=== PATIENT | female | born 1990 | race Caucasian/White ===

== ENCOUNTER 2019-09-08 21:07 | Emergency (ER) | payer OTHER ==
[~2019-09-08] VITALS: Ht 165 cm; Wt 105.0 kg
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
[2019-09-08 21:19] LABS: BASOPHILS % (AUTO) 0 % (0-10); EOSINOPHILS # (AUTO) 0.1 10^3/uL (0.0-0.3); EOSINOPHILS % (AUTO) 1 % (0-10); HEMATOCRIT 38 % (35-52); HEMOGLOBIN 13.1 G/DL (11.5-16.0); LYMPHOCYTES # (AUTO) 3.2 X 10^3 (1.0-4.0); LYMPHOCYTES % (AUTO) 30 % (12-44); MEAN CORPUSCULAR HEMOGLOBIN 27 PG (25-34); MEAN CORPUSCULAR HGB CONC 34 G/DL (32-36); MEAN CORPUSCULAR VOLUME 80 FL (80-99); MEAN PLATELET VOLUME 9.1 FL (7.4-10.4); MONOCYTES # (AUTO) 0.7 X 10^3 (0.0-1.0); MONOCYTES % (AUTO) 6 % (0-12); NEUTROPHILS # (AUTO) 6.8 X 10^3 (1.8-7.8); NEUTROPHILS % (AUTO) 63 % (42-75); PLATELET COUNT 353 10^3/uL (130-400); RED CELL DISTRIBUTION WIDTH 13.7 % (10.0-14.5); WHITE BLOOD COUNT 10.7 10^3/uL (4.3-11.0)
[2019-09-08 21:41] LABS: ALANINE AMINOTRANSFERASE 28 U/L (0-55); ALBUMIN 4.3 GM/DL (3.2-4.5); ALKALINE PHOSPHATASE 61 U/L (40-136); BILIRUBIN,TOTAL 0.8 MG/DL (0.1-1.0); BUN/CREATININE RATIO 14; CALCIUM 9.1 MG/DL (8.5-10.1); CARBON DIOXIDE 23 MMOL/L (21-32); CHLORIDE 104 MMOL/L (98-107); CREATININE SERUM 0.85 MG/DL (0.60-1.30); GFR ESTIMATED > 60; GLUCOSE 95 MG/DL (70-105); POTASSIUM 3.5 MMOL/L (3.6-5.0); SODIUM 139 MMOL/L (135-145); TOTAL PROTEIN 7.2 GM/DL (6.4-8.2)
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
[2019-09-08] MEDS ORDERED: LORazepam INJ 2 MG/ML (ATIVAN) VIAL ONE (21:53)
[2019-09-08] MEDS ORDERED: NS 100 ML (IVPB) BAG IV ONE (22:00)
[2019-09-08] MEDS ORDERED: HOLD METFORMIN - RECEIVED CONTRAST 20 ML VIAL IV SCH (22:00)
[2019-09-08] MEDS ORDERED: LORazepam INJ 2 MG/ML (ATIVAN) VIAL IVP PRN (22:00)
[2019-09-08] MEDS ORDERED: IOHEXOL 350 MG/ML 100 ML (OMNIPAQUE 350) VIAL IV ONE (22:00)
--- NOTE | 2019-09-08 22:01 | NUR ---
AMRITA CORDON PATROL AT BEDSIDE W/ PT
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
[2019-09-08] MEDS ORDERED: RX-HYDROCODONE/APAP 5/325 MG #4 TAB PK PO PRN (22:15)
[2019-09-08 22:58] VITALS: BP 120/78
--- NOTE | 2019-09-08 22:58 | NUR ---
PT DISCHARGED TO HOME W/ MEDS ET INSTR. PT TO F/U W/ PCP ET RETURN IF SYMPTOMS CHANGE OR GET WORSE. UNDERSTANDING VOICED, NO QUESTIONS.
== END 2019-09-08 22:58 | disposition home or self-care (01) ==
LOC: ER 21:10
DX: S20.01XA Contusion of right breast, initial encounter (principal); R40.2142 Coma scale, eyes open, spontaneous, at arrival to emergency department; R40.2252 Coma scale, best verbal response, oriented, at arrival to emergency department; R40.2362 Coma scale, best motor response, obeys commands, at arrival to emergency department; Z91.040 Latex allergy status; Z88.0 Allergy status to penicillin; V43.53XA Car driver injured in collision with pick-up truck in traffic accident, initial encounter
CPT/HCPCS: 36415; 70450; 71260; 72125; 74177; 80053; 84703; 85025; 96374

== ENCOUNTER 2021-03-10 21:06 | Emergency (ER) | payer OTHER ==
[~2021-03-10] VITALS: Ht 172.7 cm; Wt 75.0 kg
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
[2021-03-10] MEDS ORDERED: RX-CYCLOBENZAPRINE 10 MG (FLEXERIL) TAB PPK#3 PO STA (23:18)
[2021-03-10] MEDS ORDERED: CYCL10TA9 PO (23:22)
[2021-03-10 23:33] VITALS: BP 118/71
== END 2021-03-10 23:31 | disposition home or self-care (01) ==
LOC: EDUNIT# 21:06 → ER 21:08
DX: R07.89 Other chest pain (principal); M79.644 Pain in right finger(s); M25.562 Pain in left knee; M25.532 Pain in left wrist; M54.2 Cervicalgia; V89.2XXA Person injured in unspecified motor-vehicle accident, traffic, initial encounter
CPT/HCPCS: 70450; 71045; 72125; 72170; 73110; 73140; 73562

== ENCOUNTER 2022-05-08 09:11 | Emergency (ER) | payer MEDICAID ==
[~2022-05-08] VITALS: Ht 165.1 cm; Wt 95.9 kg
[~2022-05-08 09:11] MED LIST: CYCL10TA25 PO
[2022-05-08 11:26] LABS: BILIRUBIN,URINE NEGATIVE (NEGATIVE); CLARITY,URINE CLEAR; COLOR,URINE YELLOW; GLUCOSE, URINE (UA) NEGATIVE (NEGATIVE); KETONES,URINE TRACE (NEGATIVE); LEUKOCYTE ESTERASE ,URINE TRACE (NEGATIVE); NITRITE,URINE NEGATIVE (NEGATIVE); PROTEIN,URINE NEGATIVE (NEGATIVE)
[2022-05-08 11:32] LABS: BACTERIA,URINE FEW /HPF; RBC,URINE 0-2 /HPF
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
[2022-05-08 13:06] VITALS: BP 113/78
== END 2022-05-08 13:08 | disposition home or self-care (01) ==
LOC: EDUNIT# 09:11 → ER 09:16
DX: O9A.211 Injury, poisoning and certain other consequences of external causes complicating pregnancy, first trimester (principal); S30.0XXA Contusion of lower back and pelvis, initial encounter; S09.90XA Unspecified injury of head, initial encounter; M25.571 Pain in right ankle and joints of right foot; Z91.040 Latex allergy status; Z3A.10 10 weeks gestation of pregnancy; W10.9XXA Fall (on) (from) unspecified stairs and steps, initial encounter; W22.8XXA Striking against or struck by other objects, initial encounter; Y92.009 Unspecified place in unspecified non-institutional (private) residence as the place of occurrence of the external cause
CPT/HCPCS: 81000; 84703; 87077; 87088

== ENCOUNTER 2022-05-29 20:54 | Emergency (ER) | payer MEDICAID ==
[2022-05-29] MEDS ORDERED: diphenhydrAMINE 50 MG/ML INJ (BENADRYL) IM STA (21:10)
--- NOTE | 2022-05-29 21:14 | ED Headache ---
General Chief Complaint: Head/Cervical Problems Stated Complaint: MIGRAINE/FEVER 14 WKS PREG Source: patient Exam Limitations: no limitations History of Present Illness Date Seen by Provider: May 29, 2022 Time Seen by Provider: 21:04 Initial Comments 31-year-old female presents to the emergency department today for migraine headache. It is similar to her previous history of migraines. Its been present for 2 weeks. At about the 1 week farhana it started to get a little bit better and then 2 days later got worse again. She has seen her primary doctor and forensics team director as she is 14 weeks . They have offered her no further treatment recommendations. She has taken Tylenol and Benadryl, caffeine without any relief. Headache is described as sharp stabbing diffuse and associated with sensitivity to lights and sounds. No nausea or vomiting. It is exactly like her previous migraine headaches. Allergies and Home Medications Allergies Coded Allergies: Latex, Natural Rubber (Unverified Allergy, Unknown, 09/08/19) Penicillins (Unverified Allergy, Unknown, 09/08/19) Patient Home Medication List Home Medication List Reviewed: Yes Cyclobenzaprine HCl (Cyclobenzaprine HCl) 10 Mg Tablet, 10 MG PO Q8H PRN for SPASMS Prescribed by: ALEXANDER HASTINGS on 03/10/21 8919 Review of Systems Review of Systems Constitutional: no symptoms reported Eyes: No Symptoms Reported Ears, Nose, Mouth, Throat: no symptoms reported Respiratory: no symptoms reported Cardiovascular: no symptoms reported Gastrointestinal: no symptoms reported Genitourinary: no symptoms reported Musculoskeletal: no symptoms reported Skin: no symptoms reported Psychiatric/Neurological: Headache Past Ugpmpbw-Dyrstt-Hjpxzi Hx Patient Social History Tobacco Use?: No Use of E-Cig and/or Vaping dev: No Substance use?: No Alcohol Use?: No Pt feels they are or have been: No Immunizations Up To Date Influenza Vaccine Up-to-Date: No; Not Current First/Initial COVID19 Vaccinat: 03/04 Second COVID19 Vaccination Cm: 03/04 Third COVID19 Vaccination Date: 03/04 Past Medical History Surgeries: Yes (DENTAL) Respiratory: No Cardiac: No Neurological: No Reproductive Disorders: No Genitourinary: No Gastrointestinal: No Musculoskeletal: No Endocrine: No HEENT: No Cancer: No Psychosocial: Yes ADD/ADHD, Sleep Difficulties, Anxiety, ODD, Bipolar Integumentary: No Family Medical History Reviewed Nursing Family Hx Physical Exam Vital Signs Capillary Refill : Height, Weight, BMI Height: '" Weight: lbs. oz. kg; 35.00 BMI Method: General Appearance: WD/WN, no apparent distress HEENT: PERRL/EOMI, normal ENT inspection, TMs normal, pharynx normal Neck: non-tender, supple, normal inspection Cardiovascular: regular rate, rhythm, no murmur Respiratory: chest non-tender, lungs clear, normal breath sounds, no respiratory distress, no accessory muscle use Gastrointestinal: normal bowel sounds, non tender, soft, no organomegaly Psychiatric: alert, oriented x 3 Crainal Nerves: normal hearing, normal speech, PERRL Motor/Sensory: no motor deficit, no sensory deficit Skin: normal color, warm/dry Progress/Results/Core Measures Results/Orders My Orders Orders - SANDRA RUBIO DO Diphenhydramine Injection (Benadryl Inje (05/29/22 21:10) Departure Communication (Admissions) Patient is hemodynamically stable no focal neurologic deficits. She is afebrile without any evidence for infectious cause. No indication for imaging at this time. Unfortunately given her we are limited on what we can try for her headache. She is given IM Benadryl here and discharged home recommending alternating Tylenol and Benadryl. Impression Primary Impression: Migraine headache Qualified Codes: G43.909 - Migraine, unspecified, not intractable, without status migrainosus Disposition: 01 HOME, SELF-CARE Condition: Stable Departure-Patient Inst. Referrals: RISHI DOMINGO MD (PCP) Primary Care Physician [facility] (Family) Primary Care Physician Patient Instructions: Migraines (DC) Add. Discharge Instructions: Unfortunately given your there is mild else to give for your migraine. I have given you a shot of Benadryl hopefully will help with the next several hours. Go home and rest. Drink plenty of fluids. Alternate Tylenol and Benadryl as needed for headache. Return to the emergency department for any severe concerns. Follow-up with family doctor for any nonemergent needs. All discharge instructions reviewed with patient and/or family. Voiced understanding. SANDRA RUBIO DO May 29, 2022 21:14
[2022-05-29 21:15] VITALS: BP 137/87
== END 2022-05-29 21:22 | disposition home or self-care (01) ==
LOC: EDUNIT# 20:54 → ER 20:56
DX: O99.351 Diseases of the nervous system complicating pregnancy, first trimester (principal); G43.909 Migraine, unspecified, not intractable, without status migrainosus; Z3A.14 14 weeks gestation of pregnancy; Z28.310 Unvaccinated for COVID-19
CPT/HCPCS: 99284

== ENCOUNTER 2022-07-27 17:40 | Outpatient (CLI) | payer MEDICAID ==
[~2022-07-27] VITALS: Ht 165.1 cm; Wt 105.4 kg
[2022-07-27 18:20] VITALS: BP 125/59
[2022-07-27 18:22] LABS: BILIRUBIN,URINE NEGATIVE (NEGATIVE); CLARITY,URINE CLEAR; COLOR,URINE YELLOW; GLUCOSE, URINE (UA) NEGATIVE (NEGATIVE); KETONES,URINE NEGATIVE (NEGATIVE); LEUKOCYTE ESTERASE ,URINE 1+ (NEGATIVE); NITRITE,URINE NEGATIVE (NEGATIVE); PH,URINE 6.5 (5-9); PROTEIN,URINE NEGATIVE (NEGATIVE)
[2022-07-27 18:40] LABS: BACTERIA,URINE FEW /HPF
[2022-07-27 18:41] LABS: SQUAMOUS EPITHELIAL CELL,UR 25-50 /HPF
--- NOTE | 2022-07-28 08:39 | Physician Query-Final Dx ---
Clinic Account Progress/Dx Physician Query: Please give diagnosis Please include # weeks gestation Date of Service Jul 27, 2022 at 17:40 LUMAJunJul 28, 2022 08:39
== END 2022-07-27 18:40 | disposition home or self-care (01) ==
LOC: WSo 17:40 → LDRP 17:41 → WSo 18:40
PROVIDERS: ATTEND Family Medicine
DX: O99.891 Other specified diseases and conditions complicating pregnancy (principal); R10.9 Unspecified abdominal pain; Z3A.22 22 weeks gestation of pregnancy
CPT/HCPCS: 81000; 87088; 99212

== ENCOUNTER 2022-09-21 16:12 | Outpatient (CLI) | payer MEDICAID ==
[~2022-09-21] VITALS: Ht 165.1 cm; Wt 106.3 kg
[2022-09-21 16:25] VITALS: BP 124/60
[2022-09-21] MEDS ORDERED: TRZ50T PO (17:21)
[2022-09-21] MEDS ORDERED: SERT20OR6 PO (17:21)
[2022-09-21] MEDS ORDERED: PREN1TAB79 PO (17:21)
[2022-09-21 17:43] VITALS: BP 127/61
--- NOTE | 2022-09-22 08:29 | Physician Query-Final Dx ---
Clinic Account Progress/Dx Physician Query: Please give diagnosis Please include # weeks gestation Date of Service Sep 21, 2022 at 16:12 LUMA,JunSep 22, 2022 08:29
== END 2022-09-21 17:43 | disposition home or self-care (01) ==
LOC: WSo 16:12 → LDRP 16:12 → WSo 17:43
PROVIDERS: ATTEND Family Medicine
DX: O9A.213 Injury, poisoning and certain other consequences of external causes complicating pregnancy, third trimester (principal); Z3A.30 30 weeks gestation of pregnancy
CPT/HCPCS: 99213

== ENCOUNTER 2022-11-16 22:00 | Inpatient (IN) | payer MEDICAID ==
[~2022-11-16] VITALS: Ht 165.1 cm; Wt 107.2 kg
[~2022-11-16 22:00] MED LIST changes: +PREN1TAB79 PO; +SERT20OR6 PO; +TRZ50T PO
[2022-11-16] MEDS ORDERED: LACTATED RINGERS 1,000 ML IV SCH (23:15)
[2022-11-16 23:52] VITALS: BP 114/68
[2022-11-16 23:58] LABS: BASOPHILS % (AUTO) 0 % (0-10); EOSINOPHILS % (AUTO) 0 % (0-10); HEMATOCRIT 32 % (35-52); LYMPHOCYTES % (AUTO) 19 % (12-44); MEAN CORPUSCULAR HEMOGLOBIN 28 pg (25-34); MEAN CORPUSCULAR HGB CONC 34 g/dL (32-36); MEAN CORPUSCULAR VOLUME 82 fL (80-99); MEAN PLATELET VOLUME 9.1 fL (9.0-12.2); MONOCYTES # (AUTO) 0.7 10^3/uL (0.0-1.0); MONOCYTES % (AUTO) 6 % (0-12); NEUTROPHILS # (AUTO) 7.7 10^3/uL (1.8-7.8); NEUTROPHILS % (AUTO) 73 % (42-75); PLATELET COUNT 240 10^3/uL (130-400); WHITE BLOOD COUNT 10.5 10^3/uL (4.3-11.0)
[2022-11-17] VITALS (66 sets, daily range): BP systolic 94–173; BP diastolic 55–114
[2022-11-17] MEDS: D5 LR IV SOLUTION 1,000 ML IV SCH ×3 (00:18→15:22)
[2022-11-17] MEDS ORDERED: CALCIUM CARBONATE 500 MG (TUMS) TAB.CHEW PO ONE (00:45)
[2022-11-17] MEDS ORDERED: CALCIUM CARBONATE 500 MG (TUMS) TAB.CHEW ONE (01:01)
[2022-11-17 01:26] LABS: BILIRUBIN,URINE NEGATIVE (NEGATIVE); CLARITY,URINE SL CLOUDY; COLOR,URINE YELLOW; GLUCOSE, URINE (UA) NEGATIVE (NEGATIVE); KETONES,URINE NEGATIVE (NEGATIVE); LEUKOCYTE ESTERASE ,URINE 1+ (NEGATIVE); NITRITE,URINE NEGATIVE (NEGATIVE); PROTEIN,URINE NEGATIVE (NEGATIVE)
[2022-11-17 01:34] LABS: AMORPHOUS SEDIMENT,UR LARGE AMOR URATES /LPF; BACTERIA,URINE TRACE /HPF; SQUAMOUS EPITHELIAL CELL,UR 0-2 /HPF; WBC,URINE 0-2 /HPF
[2022-11-17] MEDS ORDERED: CATHETER FLUSH 10 ML SYR IV SCH (06:00)
--- NOTE | 2022-11-17 09:22 | History & Physical-OB ---
OB - Chief Complaint & HPI Date/Time Date of Admission: Date of Admission: Nov 16, 2022 at 22:04 Date seen by a Provider: Nov 17, 2022 Time Seen by a Provider: 07:50 Chief Complaint/History OB-Reason for Admission/Chief: Induction of Labor Hx : 6 Hx Para: 1041 Expected Date of Delivery: Nov 24, 2022 Gestational Age in Weeks: 39 Gestational Age in Days: 0 Indication for induction: other (risk reducing) History of Labs A+, antibody neg, RNI. HIV/HepB/RPR NR. Gonorrhea neg. Chlamydia pos in first trimester, treated and DEBBY negative. 1 hour glucola elevated, 3 hour all normal. GBS negative. Allergies and Home Medications Allergies Coded Allergies: Latex, Natural Rubber (Unverified Allergy, Unknown, 09/08/19) Penicillins (Unverified Allergy, Unknown, 09/08/19) Patient Home Medication List Home Medication List Reviewed: Yes Ferrous Sulfate (Ferosul) 325 Mg (65 Mg Iron) Tablet, 325 MG PO DAILY, (Reported) Entered as Reported by: RISHI DOMINGO on 11/17/22925 Last Action: Reviewed Fluticasone Propionate (Fluticasone Propionate) 50 Mcg/Actuation [place].susp, 1 SPRAY NA DAILY, (Reported) Entered as Reported by: RISHI DOMINGO on 11/17/22925 Last Action: Reviewed Vit W-Ca,Fe,FA(<1 mg) ( Vitamins) 27 Mg Iron-800 Mcg Tablet, 1 EACH PO, (Reported) Entered as Reported by: ANGELICA KAUFMAN on 09/21/221720 Last Action: Reviewed Sertraline HCl (Sertraline HCl) 50 Mg Tablet, 50 MG PO DAILY, (Reported) Entered as Reported by: RISHI DOMINGO on 11/17/22925 Last Action: Reviewed Trazodone HCl (Trazodone HCl) 50 Mg Tablet, 50 MG PO, (Reported) Entered as Reported by: ANGELICA KAUFMAN on 09/21/221720 Last Action: Reviewed Discontinued Medications Sertraline HCl (Sertraline HCl) 20 Mg/Ml Oral.conc, 20 MG PO, (Reported) Entered as Reported by: ANGELICA KAUFMAN on 09/21/221720 Last Action: Discontinued OB - History Hx of Present Care: Yes Ultrasounds: Normal mid trimester US Obstetrical Complications: None Medical Complications: Psychiatric (bipolar disorder, on sertaline and trazodone), Other (obesity) Information Induced Hypertension: No Maternal Gestational Diabetes: No Hemorrhage: No Obstetrical History Hx : 6 Hx Para: 1 Hx # Term Pregnancies: 1 Hx # Pregnancies: 0 Number of Living Children: 1 Hx Total # of Abortions (Spona: 4 Hx Multiple Gestation: No Hx Ectopic : No Hx Stillbirth: No Hx Complication: No Hx Induced Hypertens: No Hx Maternal Gestational Diabet: No Hx Hemorrhage: No Delivery History Hx Dystocia: No Hx Forceps Assisted Delivery: No Hx Vacuum Extraction Assisted: No Hx Placenta Abnormality: No Hx Distress: No Hx Large For Gestational Age I: No Hx Small for Gestational Age I: No Hx Section: No Hx Vaginal Delivery Post C-Sec: No Hx Blood Disorders: No Adverse Rxn to Tranfusion: No Patient Past Medical History PMHx: Bipolar disorder SurgHx: [place] teeth extraction Social History/Family History Alcohol Use: Denies Use Recreational Drug Use: Yes (history of THC use prior to ) Smoking Cessation: Never smoker 2nd Hand Smoke Exposure: No Immunizations Influenza Vaccine Up-to-Date: Yes; Up-to-Date First/Initial COVID19 Vaccine: 01/20/2021 Second COVID19 Vaccination: 02/17/2021 COVID19 Vaccine [employer]: [place] Hepatitis A: Yes Hepatitis B: Yes Tetanus Booster (TDap): Less than 5yrs (09/18/2022) Rubella: not immune RPR/VDRL: Negative GBS Status: Negative HBsAG: Negative OB - Admission Exam Physical Exam Vitals: Vital Signs 11/17/22 04:37 Temp 36.8 Pulse 73 Resp 18 B/P (MAP) 116/59 (78) Pulse Ox 100 O2 Delivery Room Air HEENT: NCAT Abdomen: Non tender Extremities: Normal Cervical Dilatation: 2cm Effacement: 0% Station: -3 Membranes: Intact Heart Rate: 120's Decelerations: No Decelerations Header Set Up Operator Variability: Average (6-25) Contractions on Admission: None Stewart Scoring Tool (Modified) Dilation (cm): 1-2cm (1) Effacement (%): 0-30% (0) Descent/Station: -3 (0) Cervix Consistency: Medium(1) Cervix Position: Posterior (0) Add 1 point for: Each previous vaginal delivery (1) Stewart Score: 3 Labs Laboratory Tests Test 11/16/22 22:10 11/16/22 23:46 Range/Units Urine Color YELLOW Urine Clarity SL CLOUDY Urine pH 7.0 5-9 Urine Specific Wilson 1.010 L 1.016-1.022 Urine Protein NEGATIVE NEGATIVE Urine Glucose (UA) NEGATIVE NEGATIVE Urine Ketones NEGATIVE NEGATIVE Urine Nitrite NEGATIVE NEGATIVE Urine Bilirubin NEGATIVE NEGATIVE Urine Urobilinogen 0.2 < = 1.0 MG/DL Urine Leukocyte Esterase 1+ H NEGATIVE Urine RBC (Auto) NEGATIVE NEGATIVE Urine RBC NONE /HPF Urine WBC 0-2 /HPF Urine Squamous Epithelial Cells 0-2 /HPF Urine Crystals PRESENT H /LPF Urine Amorphous Sediment LARGE STEPHANIE URATES H /LPF Urine Bacteria TRACE /HPF Urine Casts NONE /LPF Urine Mucus NEGATIVE /LPF Urine Culture Indicated NO White Blood Count 10.5 4.3-11.0 10^3/uL Red Blood Count 3.90 3.80-5.11 10^6/uL Hemoglobin 11.0 L 11.5-16.0 g/dL Hematocrit 32 L 35-52 % Mean Corpuscular Volume 82 80-99 fL Mean Corpuscular Hemoglobin 28 25-34 pg Mean Corpuscular Hemoglobin Concent 34 32-36 g/dL Red Cell Distribution Width 14.1 10.0-14.5 % Platelet Count 240 130-400 10^3/uL Mean Platelet Volume 9.1 9.0-12.2 fL Immature Granulocyte % (Auto) 0 % Neutrophils (%) (Auto) 73 42-75 % Lymphocytes (%) (Auto) 19 12-44 % Monocytes (%) (Auto) 6 0-12 % Eosinophils (%) (Auto) 0 0-10 % Basophils (%) (Auto) 0 0-10 % Neutrophils # (Auto) 7.7 1.8-7.8 10^3/uL Lymphocytes # (Auto) 2.0 1.0-4.0 10^3/uL Monocytes # (Auto) 0.7 0.0-1.0 10^3/uL Eosinophils # (Auto) 0.0 0.0-0.3 10^3/uL Basophils # (Auto) 0.0 0.0-0.1 10^3/uL Immature Granulocyte # (Auto) 0.0 0.0-0.1 10^3/uL Syphilis Total Antibody Negative Negative OB - Assessment/Plan/Diagnosis Assessment Admission Dx Term intrauterine at 39w0d Induction of labor per patient request after discussion of risks and benefits Rubella non-immune GBS negative Admission Status: Inpatient Order (span 2 midnights) Reason for Inpatient Admission: Labor, delivery and course Plan Plan: Induction Induction Method: per Misoprostol Protocol Problems: (1) Encounter for planned induction of labor Assessment & Plan: Received misoprostol two doses since midnight with change from 1 to 2+, now annette every 2 minutes or more (nonpainful). Given some change and frequent contractions, discussed several options with patient including soto bulb for mechanical ripening, starting pitocin or expectant management. She would like to wait an hour or two and if she continues to change will continue expectant management, if not, will begin pitocin. RISHI DOMINGO MD Nov 17, 2022 09:22
[2022-11-17] MEDS ORDERED: FLUT16SP22 (09:26)
[2022-11-17] MEDS ORDERED: FERR325T24 PO (09:26)
[2022-11-17] MEDS ORDERED: SERT-413 PO (09:26)
[2022-11-17] MEDS ORDERED: OXYTOCIN PRE-MIX DRIP 500 ML IV ONE (09:27)
[2022-11-17] MEDS ORDERED: OXYTOCIN PRE-MIX DRIP 500 ML IV SCH ×3 (09:45→23:45)
--- NOTE | 2022-11-17 13:36 | Labor Progress Note ---
Labor Progress Note Labor Progress Note Date Seen by Provider: Nov 17, 2022 Time Seen by Provider: 13:20 Subjective: Pt starting to feel some pain with contractions. Difficult to trace heart tones, nursing requests FSE for better management of pitocin. Objective: Cervical exam: 3.5/-1 Consistency: soft Position: mid Presentation: vertex heart tones: 120 beats per minute, moderate variability, reactive Tocometer: 3-4 ctx/10 minutes Assessment/Plan: Stefani Redding is a (32 /Para 6 / 1,Gestational Age (wks)39 here for induction of labor. FSE/TOCO Continue pitocin Anesthesia: None, plans to have epidural, okay to start at any time Anticipate vaginal delivery. Vitals - Labs Vital Signs - I&O Vital Signs Date Time Temp Pulse Resp B/P (MAP) Pulse Ox O2 Delivery O2 Flow Rate FiO2 11/17/22 11:02 73 18 121/72 (88) Room Air 11/17/22 10:47 68 18 138/60 (86) Room Air 11/17/22 10:30 36.8 74 18 128/79 (95) Room Air 11/17/22 10:15 82 18 129/78 (95) Room Air 11/17/22 10:00 81 18 128/78 (95) Room Air 11/17/22 09:45 76 18 128/74 (92) Room Air 11/17/22 08:10 36.8 75 18 123/63 (83) 100 Room Air 11/17/22 04:37 36.8 73 18 116/59 (78) 100 Room Air 11/17/22 01:06 36.5 82 18 116/58 (77) 98 Room Air 11/16/22 23:52 36.3 71 20 98 Room Air I & O 11/17/22 07:00 Intake Total 1000 ml Balance 1000 ml Labs Laboratory Tests 11/16/22 22:10: Urine Color YELLOW, Urine Clarity SL CLOUDY, Urine pH 7.0, Urine Specific Grav ity 1.010L, Urine Protein NEGATIVE, Urine Glucose (UA) NEGATIVE, Urine Ketones NEGATIVE, Urine Nitrite NEGATIVE, Urine Bilirubin NEGATIVE, Urine Urobilinogen 0.2, Urine Leukocyte Esterase 1+H, Urine RBC (Auto) NEGATIVE, Urine RBC NONE, Urine WBC 0-2, Urine Squamous Epithelial Cells 0-2, Urine Crystals PRESENTH, Urine Amorphous Sediment LARGE STEPHANIE URATESH, Urine Bacteria TRACE, Urine Casts NONE, Urine Mucus NEGATIVE, Urine Culture Indicated NO 11/16/22 23:46: White Blood Count 10.5, Red Blood Count 3.90, Hemoglobin 11.0L, Hematocrit 32L, Mean Corpuscular Volume 82, Mean Corpuscular Hemoglobin 28, Mean Corpuscular Hemoglobin Concent 34, Red Cell Distribution Width 14.1, Platelet Count 240, Mean Platelet Volume 9.1, Immature Granulocyte % (Auto) 0, Neutrophils (%) (Auto) 73, Lymphocytes (%) (Auto) 19, Monocytes (%) (Auto) 6, Eosinophils (%) (Auto) 0, Basophils (%) (Auto) 0, Neutrophils # (Auto) 7.7, Lymphocytes # (Auto) 2.0, Monocytes # (Auto) 0.7, Eosinophils # (Auto) 0.0, Basophils # (Auto) 0.0, Immature Granulocyte # (Auto) 0.0, Syphilis Total Antibody Negative RISHI DOMINGO MD Nov 17, 2022 13:36
[2022-11-17] MEDS ORDERED: fentaNYL 2 mcg/ml BUPIVA 0.125 100 ML ONE (15:47)
[2022-11-17] MEDS ORDERED: fentaNYL INJ 100 MCG/2 ML AMP ONE (17:01)
[2022-11-17] MEDS ORDERED: NALOXONE 0.4 MG/ML 1 ML (NARCAN) VIAL IV PRN ×2 (18:15)
[2022-11-17] MEDS ORDERED: LACTATED RINGERS 1,000 ML IV SCH (18:15)
[2022-11-17] MEDS ORDERED: diphenhydrAMINE 50 MG/ML INJ (BENADRYL) IV PRN (18:15)
[2022-11-17] MEDS ORDERED: ONDANSETRON 4 MG/2 ML (SDV) Z0FRAN IV PRN (18:15)
[2022-11-17] MEDS ORDERED: fentaNYL 2 mcg/ml BUPIVA 0.125 100 ML EPI SCH (18:15)
[2022-11-17] MEDS ORDERED: METOCLOPRAMIDE INJ 10 MG/2 ML (REGLAN) IV PRN (18:15)
[2022-11-17] MEDS ORDERED: LIDOCAINE/EPI 2% 1:200,00 (XYLOCAINE) 20 ML VIAL ONE (23:10)
[2022-11-17] MEDS ORDERED: LIDOCAINE/EPI 2% 1:200,00 (XYLOCAINE) 10 ML VIAL INJ PRN (23:15)
--- NOTE | 2022-11-17 23:41 | OB Labor & Delivery Record ---
Vag Delivery Note Vag Delivery Note Date of Delivery: 11/17/22 Preoperative Diagnosis: Stefani Redding is a (31 /Para 6 / 1, Gestational Age (wks)39with 0 days Postoperative Diagnosis: Same Surgeon: RISHI DOMINGO Anesthesia: Epidural Delivery Type: Findings: Viable female , apgars 7/8, weight 6#13 Lacerations: second degree perineal laceration, left periurethral abrasion Intact placenta with 3 vessel cord. [place] cord, no nuchal cord, or shoulder dystocia Estimated Blood Loss: 200 ml Complications: None Condition: Stable Description of Procedure: The patient is a 32 year old female who presented for induction of labor. She was admitted and informed consent was obtained. Her labor course was unremarkable. She progressed to complete dilatation and began to push. She was then set up for delivery. The infant's head was delivered atraumatically in the OP position. The shoulders and remainder of the 's body were then delivered without difficulty. Upon delivery, the was vigorous and placed on maternal chest and the mouth and nares were bulb suctioned. After a delay cord was doubly clamped and cut and the infant remained on maternal chest. An intact placenta with 3-vessel cord delivered via Arielle and there was found to be minimal bleeding.~ Vigorous fundal massage was performed and the fundus was found to be firm. IV oxytocin was given. Examination of the vagina and perineum revealed a second degree perineal laceration repaired in the usual fashion with 3-0 vicryl rapide suture. Following the repair, sponge, instrument and needle counts were correct. Mom and baby were both in stable condition in the labor suite. Vitals - Labs Vital Signs - I&O Vital Signs Date Time Temp Pulse Resp B/P (MAP) Pulse Ox O2 Delivery O2 Flow Rate FiO2 11/17/22 19:00 64 18 134/77 (96) 98 Room Air 11/17/22 18:45 64 18 125/65 (85) 100 Room Air 11/17/22 18:30 75 18 128/73 (91) 99 Room Air 11/17/22 18:15 67 18 127/70 (89) 99 Room Air 11/17/22 17:58 64 18 116/70 (85) 99 Room Air 11/17/22 17:54 69 18 130/68 (88) 100 Room Air 11/17/22 17:49 67 18 124/57 (79) 100 Room Air 11/17/22 17:44 68 18 111/58 (75) 99 Room Air 11/17/22 17:39 72 18 125/59 (81) 99 Room Air 11/17/22 17:33 68 18 116/57 (76) 99 Room Air 11/17/22 17:28 65 18 127/62 (83) 100 Room Air 11/17/22 17:26 65 18 143/74 (97) 98 Room Air 11/17/22 17:22 82 18 139/72 (94) 98 Room Air 11/17/22 17:20 81 18 139/74 (95) 100 Room Air 11/17/22 17:00 36.7 83 18 128/70 (89) Room Air 11/17/22 16:45 65 18 119/65 (83) Room Air 11/17/22 16:30 63 18 122/72 (89) Room Air 11/17/22 16:15 58 18 115/59 (77) Room Air 11/17/22 16:00 63 18 110/56 (74) Room Air 11/17/22 15:45 69 18 109/57 (74) Room Air 11/17/22 15:30 77 18 120/76 (91) Room Air 11/17/22 15:15 77 18 104/70 (81) Room Air 11/17/22 15:00 71 18 123/68 (86) Room Air 11/17/22 14:45 69 18 118/65 (82) Room Air 11/17/22 14:30 37.0 71 18 118/62 (80) Room Air 11/17/22 14:15 79 18 117/56 (76) Room Air 11/17/22 14:00 80 18 116/70 (85) Room Air 11/17/22 13:45 70 18 116/69 (85) Room Air 11/17/22 13:30 72 18 119/69 (86) Room Air 11/17/22 13:00 75 18 125/62 (83) Room Air 11/17/22 12:45 36.8 73 18 116/67 (83) Room Air 11/17/22 12:30 66 18 121/67 (85) Room Air 11/17/22 12:15 58 18 104/55 (71) Room Air 11/17/22 12:00 65 18 110/65 (80) Room Air 11/17/22 11:45 66 18 136/74 (94) Room Air 11/17/22 11:30 73 18 137/70 (92) Room Air 11/17/22 11:15 70 18 142/78 (99) Room Air 11/17/22 11:02 73 18 121/72 (88) Room Air 11/17/22 10:47 68 18 138/60 (86) Room Air 11/17/22 10:30 36.8 74 18 128/79 (95) Room Air 11/17/22 10:15 82 18 129/78 (95) Room Air 11/17/22 10:00 81 18 128/78 (95) Room Air 11/17/22 09:45 76 18 128/74 (92) Room Air 11/17/22 08:10 36.8 75 18 123/63 (83) 100 Room Air 11/17/22 04:37 36.8 73 18 116/59 (78) 100 Room Air 11/17/22 01:06 36.5 82 18 116/58 (77) 98 Room Air 11/16/22 23:52 36.3 71 20 98 Room Air I & O 11/17/22 06:59 Intake Total 1000 ml Balance 1000 ml Labs Laboratory Tests 11/16/22 23:46: White Blood Count 10.5, Red Blood Count 3.90, Hemoglobin 11.0L, Hematocrit 32L, Mean Corpuscular Volume 82, Mean Corpuscular Hemoglobin 28, Mean Corpuscular Hemoglobin Concent 34, Red Cell Distribution Width 14.1, Platelet Count 240, Mean Platelet Volume 9.1, Immature Granulocyte % (Auto) 0, Neutrophils (%) (Auto) 73, Lymphocytes (%) (Auto) 19, Monocytes (%) (Auto) 6, Eosinophils (%) (Auto) 0, Basophils (%) (Auto) 0, Neutrophils # (Auto) 7.7, Lymphocytes # (Auto) 2.0, Monocytes # (Auto) 0.7, Eosinophils # (Auto) 0.0, Basophils # (Auto) 0.0, Immature Granulocyte # (Auto) 0.0, Syphilis Serology Non-Reactive, Syphilis Total Antibody Negative RISHI DOMINGO MD Nov 17, 2022 23:41
[2022-11-17] MEDS ORDERED: traZODone 50 MG (DESYREL) TAB PO PRN (23:45)
[2022-11-17] MEDS ORDERED: WITCH HAZEL(TUCKS) 40 EA JAR TOP PRN (23:45)
[2022-11-17] MEDS ORDERED: BENZOCAINE/MENTHOL (DERMOPLAST) 56 ML CAN TP PRN (23:45)
[2022-11-17] MEDS ORDERED: MEASLES,MUMPS,RUBELLA 1 EA INJ SQ ONE (23:45)
[2022-11-18] VITALS (8 sets, daily range): BP systolic 108–130; BP diastolic 51–68
[2022-11-18] MEDS ORDERED: ACETAMINOPHEN 500 MG TAB (TYLENOL) PO PRN (01:30)
[2022-11-18] MEDS: IBUPROFEN 600 MG (MOTRIN) TAB PO SCH ×4 (02:40→20:37)
[2022-11-18] MEDS ORDERED: CATHETER FLUSH 10 ML SYR IV SCH (06:00)
[2022-11-18 06:20] LABS: BASOPHILS % (AUTO) 0 % (0-10); EOSINOPHILS % (AUTO) 0 % (0-10); HEMATOCRIT 31 % (35-52); HEMOGLOBIN 10.2 g/dL (11.5-16.0); LYMPHOCYTES # (AUTO) 1.4 10^3/uL (1.0-4.0); LYMPHOCYTES % (AUTO) 9 % (12-44); MEAN CORPUSCULAR HEMOGLOBIN 28 pg (25-34); MEAN CORPUSCULAR HGB CONC 33 g/dL (32-36); MEAN CORPUSCULAR VOLUME 83 fL (80-99); MEAN PLATELET VOLUME 9.5 fL (9.0-12.2); MONOCYTES # (AUTO) 0.8 10^3/uL (0.0-1.0); MONOCYTES % (AUTO) 5 % (0-12); NEUTROPHILS # (AUTO) 13.7 10^3/uL (1.8-7.8); NEUTROPHILS % (AUTO) 86 % (42-75); PLATELET COUNT 226 10^3/uL (130-400); WHITE BLOOD COUNT 15.9 10^3/uL (4.3-11.0)
[2022-11-18] MEDS ORDERED: MINERAL OIL 30 ML UDC TOP PRN (07:00)
[2022-11-18] MEDS ORDERED: FLUTICASONE NASAL SPRAY (FLONASE) 16 GM BTL NS SCH (09:00)
[2022-11-18] MEDS: DOCUSATE SODIUM 100 MG (COLACE) CAP PO SCH ×2 (09:32→20:36)
--- NOTE | 2022-11-18 09:43 | Anesthesia-Regional Post-Op ---
Regional Patient Condition Mental Status: Alert, Oriented x3 Circulation: Same as Pre-Op Headache: Absent Sensation: Full Recovery Motor Block: Absent Post Op Complications Complications None Follow Up Care/Instructions Patient Instructions None needed. Anesthesia/Patient Condition Patient is doing well, no complaints, stable vital signs, no apparent adverse anesthesia problems. No complications reported per nursing. CHERRY CARTWRIGHT CRNA Nov 18, 2022 09:43
[2022-11-18] MEDS: PRENATAL VITAMIN 1 EA TAB PO SCH (10:28)
[2022-11-18] MEDS: FERROUS SULF 325 MG (IRON) TAB PO SCH (10:29)
[2022-11-18] MEDS: SERTRALINE 50 MG (ZOLOFT) TABLET PO SCH (10:29)
--- NOTE | 2022-11-18 13:34 | Postpartum Progress Note ---
Note Note Day # 1 Subjective: Patient is without complaints. Ambulating, voiding. Tolerating a regular diet without nausea or vomiting. Normal lochia. Pain is well controlled with oral pain medications. Breast feeding. States that she is having some perineal pain. Objective: Laboratory Tests Test 11/18/22 05:30 Range/Units White Blood Count 15.9 H 4.3-11.0 10^3/uL Red Blood Count 3.69 L 3.80-5.11 10^6/uL Hemoglobin 10.2 L 11.5-16.0 g/dL Hematocrit 31 L 35-52 % Mean Corpuscular Volume 83 80-99 fL Mean Corpuscular Hemoglobin 28 25-34 pg Mean Corpuscular Hemoglobin Concent 33 32-36 g/dL Red Cell Distribution Width 13.8 10.0-14.5 % Platelet Count 226 130-400 10^3/uL Mean Platelet Volume 9.5 9.0-12.2 fL Immature Granulocyte % (Auto) 1 % Neutrophils (%) (Auto) 86 H 42-75 % Lymphocytes (%) (Auto) 9 L 12-44 % Monocytes (%) (Auto) 5 0-12 % Eosinophils (%) (Auto) 0 0-10 % Basophils (%) (Auto) 0 0-10 % Neutrophils # (Auto) 13.7 H 1.8-7.8 10^3/uL Lymphocytes # (Auto) 1.4 1.0-4.0 10^3/uL Monocytes # (Auto) 0.8 0.0-1.0 10^3/uL Eosinophils # (Auto) 0.0 0.0-0.3 10^3/uL Basophils # (Auto) 0.0 0.0-0.1 10^3/uL Immature Granulocyte # (Auto) 0.1 0.0-0.1 10^3/uL Physical Exam: General - Alert and oriented, no apparent distress Abdomen - Soft, appropriately tender to palpation, non-distended, fundus firm at umbilicus Extremities - no edema, negative Fidel's bilaterally Assessment: 32 yo G6 now P2 post- day # 1, status post spontaneous vaginal delivery at 39 weeks. Recovering well, hemodynamically stable Anemia of acute blood loss Plan: Routine care. Encourage breast feeding. Encourage ambulation. Ferrous sulfate supplementation. Plan for discharge tomorrow with f.u [address] Doll Vitals - Labs Vital Signs - I&O Vital Signs Date Time Temp Pulse Resp B/P (MAP) Pulse Ox O2 Delivery O2 Flow Rate FiO2 11/18/22 03:10 36.2 71 18 109/51 (70) 99 Room Air 11/18/22 00:42 81 18 130/63 (85) Room Air 11/18/22 00:27 80 18 126/61 (82) Room Air 11/18/22 00:13 89 18 116/60 (78) Room Air 11/17/22 23:58 97 18 135/88 (104) Room Air 11/17/22 23:43 88 18 94/61 (72) Room Air 11/17/22 23:28 90 18 143/62 (89) Room Air 11/17/22 23:00 18 152/71 (98) Room Air 11/17/22 22:45 88 18 143/78 (99) Room Air 11/17/22 22:30 103 18 138/67 (90) Room Air 11/17/22 22:20 86 18 137/73 (94) Room Air 11/17/22 22:15 96 18 138/114 (122) Room Air 11/17/22 22:00 112 18 173/113 (133) Room Air 11/17/22 21:45 67 18 126/77 (93) Room Air 11/17/22 21:30 80 18 136/82 (100) Room Air 11/17/22 21:15 85 18 146/88 (107) Room Air 11/17/22 21:00 66 18 130/57 (81) 100 Room Air 11/17/22 20:45 73 18 136/73 (94) 100 Room Air 11/17/22 20:30 73 18 145/85 (105) 100 Room Air 11/17/22 20:15 83 18 154/106 (122) 100 Room Air 11/17/22 20:00 68 18 134/75 (94) 100 Room Air 11/17/22 19:45 66 18 124/59 (80) 100 Room Air 11/17/22 19:30 36.7 72 18 117/63 (81) 100 Room Air 11/17/22 19:15 67 18 116/70 (85) 99 Room Air 11/17/22 19:00 64 18 134/77 (96) 98 Room Air 11/17/22 18:45 64 18 125/65 (85) 100 Room Air 11/17/22 18:30 75 18 128/73 (91) 99 Room Air 11/17/22 18:15 67 18 127/70 (89) 99 Room Air 11/17/22 17:58 64 18 116/70 (85) 99 Room Air 11/17/22 17:54 69 18 130/68 (88) 100 Room Air 11/17/22 17:49 67 18 124/57 (79) 100 Room Air 11/17/22 17:44 68 18 111/58 (75) 99 Room Air 11/17/22 17:39 72 18 125/59 (81) 99 Room Air 11/17/22 17:33 68 18 116/57 (76) 99 Room Air 11/17/22 17:28 65 18 127/62 (83) 100 Room Air 11/17/22 17:26 65 18 143/74 (97) 98 Room Air 11/17/22 17:22 82 18 139/72 (94) 98 Room Air 11/17/22 17:20 81 18 139/74 (95) 100 Room Air 11/17/22 17:00 36.7 83 18 128/70 (89) Room Air 11/17/22 16:45 65 18 119/65 (83) Room Air 11/17/22 16:30 63 18 122/72 (89) Room Air 11/17/22 16:15 58 18 115/59 (77) Room Air 11/17/22 16:00 63 18 110/56 (74) Room Air 11/17/22 15:45 69 18 109/57 (74) Room Air 11/17/22 15:30 77 18 120/76 (91) Room Air 11/17/22 15:15 77 18 104/70 (81) Room Air 11/17/22 15:00 71 18 123/68 (86) Room Air 11/17/22 14:45 69 18 118/65 (82) Room Air 11/17/22 14:30 37.0 71 18 118/62 (80) Room Air 11/17/22 14:15 79 18 117/56 (76) Room Air 11/17/22 14:00 80 18 116/70 (85) Room Air 11/17/22 13:45 70 18 116/69 (85) Room Air I & O 11/18/22 07:00 Intake Total 2000 ml Balance 2000 ml Labs Laboratory Tests 11/18/22 05:30: White Blood Count 15.9H, Red Blood Count 3.69L, Hemoglobin 10.2L, Hematocrit 31L , Mean Corpuscular Volume 83, Mean Corpuscular Hemoglobin 28, Mean Corpuscular Hemoglobin Concent 33, Red Cell Distribution Width 13.8, Platelet Count 226, Mean Platelet Volume 9.5, Immature Granulocyte % (Auto) 1, Neutrophils (%) (Auto) 86H, Lymphocytes (%) (Auto) 9L, Monocytes (%) (Auto) 5, Eosinophils (%) (Auto) 0, Basophils (%) (Auto) 0, Neutrophils # (Auto) 13.7H, Lymphocytes # (Auto) 1.4, Monocytes # (Auto) 0.8, Eosinophils # (Auto) 0.0, Basophils # (Auto) 0.0, Immature Granulocyte # (Auto) 0.1 SULEIMAN GRANT MD Nov 18, 2022 13:34
[2022-11-19 02:58] VITALS: BP 91/60
[2022-11-19] MEDS: IBUPROFEN 600 MG (MOTRIN) TAB PO SCH ×3 (02:58→14:37)
[2022-11-19] MEDS: FERROUS SULF 325 MG (IRON) TAB PO SCH (08:35)
[2022-11-19] MEDS: SERTRALINE 50 MG (ZOLOFT) TABLET PO SCH (08:35)
[2022-11-19] MEDS: PRENATAL VITAMIN 1 EA TAB PO SCH (08:35)
[2022-11-19] MEDS: DOCUSATE SODIUM 100 MG (COLACE) CAP PO SCH (08:35)
[2022-11-19 08:39] VITALS: BP 128/77
--- NOTE | 2022-11-19 13:33 | Discharge Summary ---
Diagnosis/Chief Complaint Date of Admission Nov 16, 2022 at 22:04 Date of Discharge 11/19/22 Admission Diagnosis Admission Diagnosis Third Trimester 39 completed weeks gestation Discharge Diagnosis 2nd degree perineal laceration repair Anemia of acute blood loos Discharge Summary-Simple/Stand Procedures Epidural placement Discharge Physical Examination Allergies: Coded Allergies: mushroom (Verified Allergy, Severe, 11/18/22) Latex, Natural Rubber (Unverified Allergy, Unknown, 09/08/19) Penicillins (Unverified Allergy, Unknown, 09/08/19) Vitals & I&Os Vital Sign - Last 12Hours Date Time Temp Pulse Resp B/P (MAP) Pulse Ox O2 Delivery O2 Flow Rate FiO2 11/19/22 08:39 36.6 73 18 128/77 (94) 98 Room Air General Appearance: Alert, Oriented X3, No Acute Distress Respiratory: Clear to Auscultation, Normal Air Movement Cardiovascular: Regular Rate, No Murmurs Abdominal: Normal Bowel Sounds, Soft, No Tenderness, Other (fundus firm at umbilicus) Extremities: Other (trace swelling present) Neuro: Normal Speech Psych/Mental Status: Mental Status NL, Mood NL Hospital Course See final discharge diagnosis. Discharge Condition at discharge stable Instructions to patient/family Please see electronic discharge instructions given to patient. Discharge Medications Reviewed and agree with Discharge Medication list on patient's Discharge Instruction sheet SULEIMAN GRANT MD Nov 19, 2022 13:33
[2022-11-19] MEDS ORDERED: IBUP-844 PO (13:35)
[2022-11-19] MEDS ORDERED: DOCU100C37 PO (13:35)
--- NOTE | 2022-11-19 13:36 | Discharge Summary ---
Discharge Inst-[facility] Reconcile Patient Problems Problems Reviewed?: Yes Depart Medications New, Converted or Re-Newed RX: Transmitted to Pharmacy New Medications: Docusate Sodium (Docusate Sodium) 100 Mg Capsule 100 MG PO BID, #14 CAP Ibuprofen (Ibu) 600 Mg Tablet 600 MG PO Q6H, #60 TAB Continued Medications: Ferrous Sulfate (Ferosul) 325 Mg (65 Mg Iron) Tablet 325 MG PO DAILY Fluticasone Propionate (Fluticasone Propionate) 50 Mcg/Actuation [place].susp 1 SPRAY NA DAILY Vit W-Ca,Fe,FA(<1 mg) ( Vitamins) 27 Mg Iron-800 Mcg Tablet 1 EACH PO, TAB Sertraline HCl (Sertraline HCl) 50 Mg Tablet 50 MG PO DAILY Trazodone HCl (Trazodone HCl) 50 Mg Tablet 50 MG PO, TAB Follow Up/Instructions Goal/Follow Up: [address] Doll Activity Activity: Activity as Tolerated Driving Instructions: You May Drive NO SMOKING: NO SMOKING Nothing Inside Vagina: No Douching, No [place], No Tampons Diet Discharge Diet: No Restrictions Symptoms to Report to : Bleeding Excessive, Fever Over 101 Degrees F For Any Problems or Questions: Contact Your Physician SULEIMAN GRANT MD Nov 19, 2022 13:36
[2022-11-19] MEDS ORDERED: MEASLES,MUMPS,RUBELLA 1 EA INJ ONE (14:22)
[2022-11-19 18:35] VITALS: BP 137/73
== END 2022-11-19 18:35 | disposition home or self-care (01) | DRG 806 ==
LOC: LDRP 22:04
PROVIDERS: ADMIT Family Medicine; ATTEND Family Medicine
PROC: 10E0XZZ Delivery of Products of Conception, External Approach (ICD-10-PCS; principal; 2022-11-17)
PROC: 3E0P7VZ Introduction of Hormone into Female Reproductive, Via Natural or Artificial Opening (ICD-10-PCS; 2022-11-17)
DX: O64.0XX0 Obstructed labor due to incomplete rotation of fetal head, not applicable or unspecified (principal); D62 Acute posthemorrhagic anemia; Z37.0 Single live birth; O70.1 Second degree perineal laceration during delivery; O71.82 Other specified trauma to perineum and vulva; Z3A.39 39 weeks gestation of pregnancy; F31.9 Bipolar disorder, unspecified; O99.343 Other mental disorders complicating pregnancy, third trimester; O99.214 Obesity complicating childbirth; O90.81 Anemia of the puerperium; Z23 Encounter for immunization; Z79.899 Other long term (current) drug therapy; Z88.0 Allergy status to penicillin
CPT/HCPCS: 36415; 81000; 85025; 86780; 86850; 86900; 86901; 90707